=== PATIENT | female | born 1960 | race Asian ===

== ENCOUNTER 2019-09-02 06:17 | Emergency (ER) | payer BC, OTHER ==
[~2019-09-02] VITALS: Ht 157.5 cm; Wt 65.8 kg
--- NOTE | 2019-09-02 06:29 | NUR ---
DWAYNE CORRAL at bedside for MSE.
[2019-09-02] MEDS ORDERED: NAPROXEN 500 MG TABLET ONE (06:43)
[2019-09-02] MEDS ORDERED: ACETAMINOPHEN 325 MG TABLET ONE (06:43)
[2019-09-02] MEDS ORDERED: ACETAMINOPHEN 325 MG TABLET PO ONE (06:45)
[2019-09-02] MEDS ORDERED: NAPROXEN 500 MG TABLET PO ONE (06:45)
--- NOTE | 2019-09-02 06:47 | NUR ---
Patient discharged to home in stable conditon. Written and verbal after care instructions given. Patient verbalizes understanding of instructions. All belongings w/ pt. Pt self-ambulated w/o difficulty.
[2019-09-02 06:48] VITALS: BP 151/92
== END 2019-09-02 06:49 | disposition home or self-care (01) ==
LOC: ER 06:22
DX: K64.4 Residual hemorrhoidal skin tags (principal)
CPT/HCPCS: A4663